=== PATIENT | male | born 1965 | race Caucasian/White ===

== ENCOUNTER 2017-01-17 16:51 | Emergency (ER) | payer OTHER, SELFPAY ==
[2017-01-17 17:03] VITALS: BP 147/96; PULSE 83; O2SAT 98
--- NOTE | 2017-01-17 17:09 | ERPHSYRPT ---
- History of Present Illness Time Seen by Provider: 01/17/17 17:04 Source: patient Exam Limitations: no limitations Physician History: The patient is a 51-year-old male who complains of an itchy blistery type rash in linear configuration on his hands and legs that began about 2 days ago when he was cleaning a fence row and burning wood that had poison nat on it. He states he is highly allergic to poison nat. He also complains of the rash on his genitals because he had to urinate while he was working in the [place]. He is not having any shortness of breath. Timing/Duration: yesterday Quality: itchy Severity: moderate Location: extremities, genitalia Possible Causes: poison nat Modifying Factors: Improves With: calamine lotion Associated Symptoms: blisters, rash Allergies/Adverse Reactions: No Known Drug Allergies Allergy (Unverified 10/23/15 22:14) Home Medications: Alprazolam 1 mg [Xanax 1 mg] 1 mg PO UD 01/17/17 [History] Hx Tetanus, Diphtheria Vaccination/Date Given: (unknown) Hx Influenza Vaccination/Date Given: No Hx Pneumococcal Vaccination/Date Given: Yes - Review of Systems Constitutional: No Fever, No Chills Eyes: No Symptoms Ears, Nose, & Throat: No Symptoms Respiratory: No Cough, No Dyspnea Cardiac: No Chest Pain, No Edema, No Syncope Abdominal/Gastrointestinal: No Abdominal Pain, No Nausea, No Vomiting, No Diarrhea Genitourinary Symptoms: No Dysuria Musculoskeletal: No Back Pain, No Neck Pain Skin: Rash Neurological: No Dizziness, No Focal Weakness, No Sensory Changes Psychological: No Symptoms Endocrine: No Symptoms Hematologic/Lymphatic: No Symptoms Immunological/Allergic: No Symptoms All Other Systems: Reviewed and Negative - Past Medical History Pertinent Past Medical History: No Musculoskeletal History: Fractures - Past Surgical History Past Surgical History: Yes Musculoskeletal: Orthopedic Surgery Other Surgical History: LEFT ARM SURGERY - Social History Smoking Status: Never smoker Exposure to second hand smoke: No Drug Use: none Patient Lives Alone: No - Nursing Vital Signs Nursing Vital Signs: Initial Vital Signs Temperature 97.7 F Temperature Source Oral Pulse Rate 83 Respiratory Rate 20 Blood Pressure [Right Arm] 147/96 Pain Intensity 0 - Physical Exam General Appearance: no apparent distress, alert Eye Exam: PERRL/EOMI, eyes nml inspection Ears, Nose, Throat Exam: normal ENT inspection, pharynx normal, moist mucous membranes Neck Exam: normal inspection, non-tender, supple, full range of motion Respiratory Exam: normal breath sounds, lungs clear, No respiratory distress Cardiovascular Exam: regular rate/rhythm, normal heart sounds Gastrointestinal/Abdomen Exam: soft, mass, No tenderness Rectal Exam: not done Back Exam: normal inspection, normal range of motion, No CVA tenderness, No vertebral tenderness Extremity Exam: normal inspection, normal range of motion Neurologic Exam: alert, oriented x 3, cooperative, normal mood/affect, sensation nml, No motor deficits Skin Exam: rash (There are some linear vesicles on the thighs and hands and arms that are consistent with poison nat dermatitis.) SpO2 Interpretation: normal SpO2: 98 Oxygen Delivery: Room Air - Departure Time of Disposition: 17:06 Departure Disposition: Home Clinical Impression: Poison nat dermatitis Condition: Stable Critical Care Time: No Additional Instructions: You have poison nat dermatitis. Take prednisone 60 mg daily for 5 days. Follow -up as needed. Prescriptions: Prednisone 10 mg [Deltasone 10 mg] 60 mg PO UD #30 tablet
== END 2017-01-17 17:22 | disposition home or self-care (01) ==
LOC: ED 16:51
DX: L23.7 Allergic contact dermatitis due to plants, except food (principal)
CPT/HCPCS: 99281

== ENCOUNTER 2024-01-12 12:02 | Day surgery (SDC) | payer OTHER ==
[2024-01-12] MEDS ORDERED: BUPIVACAINE 0.5% VIAL IJ ONE (12:03)
[2024-01-12] MEDS ORDERED: Decadron 4 MG INJ IV ONE (12:03)
[2024-01-12] MEDS ORDERED: XYLOCAINE-MPF 1% 5ML SDV IJ ONE (12:03)
[2024-01-12] MEDS ORDERED: Depo-Medrol 40 MG/ML IM ONE (12:03)
[2024-01-12] MEDS ORDERED: Lactated Ringers 1,000 ML IV ONE (13:53)
[2024-01-12] MEDS ORDERED: DIPRIVAN 200 MG/20 ML IV ONE ×2 (13:57→14:12)
--- NOTE | 2024-01-12 16:31 | XRAY ---
Indication: Right hip and piriformis injection. Intraoperative fluoroscopy provided for 1 minute 14 seconds. 2 digital spot image submitted for interpretation demonstrates posterior needle tip projecting over the expected right piriformis. Second needle tip lateral to right femur neck. Small amount of contrast injected for both needle tip placement. Correlate with intraoperative findings/report.
--- NOTE | 2024-01-12 17:20 | XRAY ---
One minute and 14 seconds of fluoroscopy was used in surgery for a right intra-articular hip and piriformis injection.
== END 2024-01-12 14:32 | disposition home or self-care (01) ==
LOC: SDC-PAIN 12:02
PROVIDERS: ATTEND Psychiatry & Neurology Pain Medicine
DX: M16.11 Unilateral primary osteoarthritis, right hip (principal)
CPT/HCPCS: 20552; 20610; 73501; 77002; J1010; J1100; J2704; Q9966